=== PATIENT | male | born 1950 | race Two or more races ===

== ENCOUNTER 2019-10-22 17:31 | Inpatient (IN) | payer MEDICAID, OTHER ==
[~2019-10-22] VITALS: Ht 167.6 cm; Wt 69.5 kg
[2019-10-22 19:02] LABS: Basophils # (auto) 0 10 ^3/uL (0-0.2); Basophils % (auto) 0.3 % (0.0-2.0); Hemoglobin 18.4 g/dL (13.5-17.5); Lymphocytes # (auto) 1.7 10 ^3/uL (0.4-5.4)
[2019-10-22 19:04] LABS: Eosinophils # (auto) 0.1 10 ^3/uL (0-0.8); Hematocrit 51.2 % (41.0-53.0); Lymphocytes % (auto) 24.6 % (10.0-50.0); Mean Corpuscular Hemoglobin 35.7 pg (28.0-32.0); Mean Corpuscular Hgb Conc. 35.9 g/dL (32.0-36.0); Mean Corpuscular Volume 99.2 fL (80.0-100.0); Monocytes # (auto) 0.5 10 ^3/uL (0-1.3); Monocytes % (auto) 7.6 % (0.0-12.0); Neutrophils # (auto) 4.7 10 ^3/uL (1.6-8.6); Neutrophils % (auto) 65.5 % (37.0-80.0); Platelet Count (auto) 173 10^3/uL (140-450); Red Blood Cells 5.15 10^6/uL (4.5-5.90); Red Cell Distribution Width 12.9 % (11.8-14.3); White Blood Cell 7.1 10^3/uL (4.4-10.8)
[2019-10-22 19:28] LABS: Calcium 8.8 mg/dL (8.5-10.1); Chloride 102 mmol/L (98-107); Potassium 3.7 mmol/L (3.5-5.1); Sodium 136 mmol/L (136-145)
[2019-10-22 19:32] LABS: Alanine Aminotransferase 27 U/L (16-61); Anion Gap 3 (5-15); Aspartate Aminotransferase 21 U/L (15-37); BUN/Creatinine Ratio 12.9; Blood Urea Nitrogen 12 mg/dL (7-18); Carbon Dioxide 31 mmol/L (21-32); GFR African American 104 mL/min; GFR Non-African American 86 mL/min; Glucose 207 mg/dL (74-106)
[2019-10-22 19:37] LABS: Alkaline Phosphatase 144 U/L (45-117); Bilirubin, Total 1.2 mg/dL (0.2-1.0); Total Protein 8.5 g/dL (6.4-8.2)
[2019-10-22 19:40] LABS: Nucleated Red Blood Cells % 5.1 %
[2019-10-22] MEDS ORDERED: MORPHINE SULF INJ 2 MG/ML SYRINGE 1ML IV PRN (21:30)
[2019-10-22] MEDS ORDERED: DOCUSATE SOD 100 MG CAP PO PRN (21:30)
[2019-10-22] MEDS ORDERED: DEXTROSE (50%) 50ML SYRG IV PRN (21:30)
[2019-10-22] MEDS ORDERED: ACETAMINOPHEN 325 MG TAB PO PRN (21:30)
[2019-10-22] MEDS ORDERED: HYDROcodone-ACET 5/325MG TAB PO PRN (21:30)
[2019-10-22] MEDS ORDERED: ONDANSETRON HCL 4 MG/2 ML VIAL IV PRN (21:30)
[2019-10-22] MEDS: SODIUM CHLORIDE 0.9% 1,000 ML IV SCH (22:15)
[2019-10-22 23:26] VITALS: BP 163/90
[2019-10-22 23:30] VITALS: BP 163/90
[2019-10-22] MEDS ORDERED: hydrALAZINE HCL 25 MG TAB PO PRN (23:30)
[2019-10-23] MEDS: ACCU-CHEK COMFORT CURVE STRIP VI SCH ×7 (00:08→23:55)
[2019-10-23] MEDS: InsuLIN REG 1unit/0.01ml Soln (100units/ml) SC SCH ×7 (00:09→23:55)
[2019-10-23 05:00] VITALS: BP 159/85
[2019-10-23 05:48] LABS: Basophils # (auto) 0 10 ^3/uL (0-0.2); Basophils % (auto) 0.2 % (0.0-2.0); Hemoglobin 16.8 g/dL (13.5-17.5); Monocytes # (auto) 0.7 10 ^3/uL (0-1.3); Platelet Count (auto) 167 10^3/uL (140-450); Red Cell Distribution Width 12.5 % (11.8-14.3)
[2019-10-23 05:50] LABS: Eosinophils # (auto) 0.1 10 ^3/uL (0-0.8); Eosinophils % (auto) 1.6 % (0.0-7.0); Hematocrit 45.8 % (41.0-53.0); Lymphocytes # (auto) 1.9 10 ^3/uL (0.4-5.4); Lymphocytes % (auto) 21.6 % (10.0-50.0); Mean Corpuscular Hgb Conc. 36.5 g/dL (32.0-36.0); Mean Corpuscular Volume 98.5 fL (80.0-100.0); Monocytes % (auto) 8.2 % (0.0-12.0); Neutrophils % (auto) 68.4 % (37.0-80.0); Nucleated Red Blood Cells % 0.1 %; Red Blood Cells 4.66 10^6/uL (4.5-5.90); White Blood Cell 8.8 10^3/uL (4.4-10.8)
[2019-10-23 06:12] LABS: Calcium 8.4 mg/dL (8.5-10.1); Potassium 3.4 mmol/L (3.5-5.1)
[2019-10-23 06:18] LABS: BUN/Creatinine Ratio 14.5
[2019-10-23] MEDS: SODIUM CHLORIDE 0.9% 1,000 ML IV SCH ×2 (06:54→17:25)
[2019-10-23 08:00] VITALS: BP 150/84
[2019-10-23 12:00] VITALS: BP 147/81
[2019-10-23] MEDS ORDERED: POTASSIUM EFFERVESENT TAB 25 MEQ PO ONE (15:30)
[2019-10-23 16:55] VITALS: BP 157/89
[2019-10-23] MEDS ORDERED: LORazepam 2MG/ML-1ML VIAL IV PRN (17:45)
[2019-10-23] MEDS: ATORVASTATIN 20 MG TAB PO SCH (17:50)
[2019-10-23 22:00] VITALS: BP 148/80
[2019-10-23 23:13] LABS: Urine Bacteria NONE SEEN /hpf (None Seen); Urine Blood Negative /uL (Negative); Urine Specific Gravity 1.008 (1.001-1.035); Urine WBC 5 /hpf (0 - 3)
[2019-10-24] MEDS: SODIUM CHLORIDE 0.9% 1,000 ML IV SCH ×3 (03:25→23:34)
[2019-10-24] MEDS: ACCU-CHEK COMFORT CURVE STRIP VI SCH ×5 (03:43→21:46)
[2019-10-24] MEDS: InsuLIN REG 1unit/0.01ml Soln (100units/ml) SC SCH ×5 (03:43→20:00)
[2019-10-24 06:00] VITALS: BP 135/76
[2019-10-24 06:03] LABS: Basophils # (auto) 0 10 ^3/uL (0-0.2); Basophils % (auto) 0.3 % (0.0-2.0); Eosinophils # (auto) 0.1 10 ^3/uL (0-0.8); Hemoglobin 16.8 g/dL (13.5-17.5); Neutrophils # (auto) 6.8 10 ^3/uL (1.6-8.6)
[2019-10-24 06:05] LABS: Eosinophils % (auto) 1.5 % (0.0-7.0); Hematocrit 45.9 % (41.0-53.0); Lymphocytes % (auto) 20.4 % (10.0-50.0); Mean Corpuscular Hemoglobin 36.1 pg (28.0-32.0); Mean Corpuscular Hgb Conc. 36.6 g/dL (32.0-36.0); Mean Corpuscular Volume 98.8 fL (80.0-100.0); Monocytes # (auto) 0.8 10 ^3/uL (0-1.3); Monocytes % (auto) 8.2 % (0.0-12.0); Neutrophils % (auto) 69.6 % (37.0-80.0); Nucleated Red Blood Cells % 0.1 %; Platelet Count (auto) 168 10^3/uL (140-450); Red Blood Cells 4.65 10^6/uL (4.5-5.90); Red Cell Distribution Width 12.7 % (11.8-14.3); White Blood Cell 9.8 10^3/uL (4.4-10.8)
[2019-10-24 06:12] LABS: INR 1.07 (0.9-1.15)
[2019-10-24 06:36] LABS: Potassium 3.5 mmol/L (3.5-5.1)
[2019-10-24 06:52] LABS: BUN/Creatinine Ratio 14.8; Calcium 8.5 mg/dL (8.5-10.1)
[2019-10-24 09:00] VITALS: BP 138/88
[2019-10-24] MEDS ORDERED: SODIUM CHLORIDE 0.9% 1,000 ML IV SCH (11:45)
[2019-10-24] MEDS: ASPirin-EC 81 mg tab PO SCH (11:59)
[2019-10-24] MEDS ORDERED: IOHEXOL 350 MG/ML 100ML IJ ONE (12:09)
[2019-10-24 12:30] VITALS: BP 148/84
[2019-10-24] MEDS: ATORVASTATIN 20 MG TAB PO SCH (17:14)
[2019-10-24 17:41] VITALS: BP_SYST 144; BP_SYST 154; BP_DIAS 87; BP_DIAS 92
[2019-10-24 22:00] VITALS: BP 136/69
[2019-10-25] MEDS: ACCU-CHEK COMFORT CURVE STRIP VI SCH ×5 (00:24→16:00)
[2019-10-25] MEDS: InsuLIN REG 1unit/0.01ml Soln (100units/ml) SC SCH ×5 (04:00→16:00)
[2019-10-25 06:00] VITALS: BP 128/83
[2019-10-25 07:01] LABS: Basophils # (auto) 0 10 ^3/uL (0-0.2); Basophils % (auto) 0.4 % (0.0-2.0); Eosinophils # (auto) 0.1 10 ^3/uL (0-0.8); Nucleated Red Blood Cells % 0.2 %
[2019-10-25 07:03] LABS: Eosinophils % (auto) 1.1 % (0.0-7.0); Hematocrit 47.8 % (41.0-53.0); Hemoglobin 17.5 g/dL (13.5-17.5); Lymphocytes # (auto) 1.9 10 ^3/uL (0.4-5.4); Lymphocytes % (auto) 19.9 % (10.0-50.0); Mean Corpuscular Hemoglobin 35.9 pg (28.0-32.0); Mean Corpuscular Hgb Conc. 36.7 g/dL (32.0-36.0); Mean Corpuscular Volume 97.8 fL (80.0-100.0); Monocytes # (auto) 0.7 10 ^3/uL (0-1.3); Neutrophils # (auto) 6.9 10 ^3/uL (1.6-8.6); Neutrophils % (auto) 71.6 % (37.0-80.0); Platelet Count (auto) 176 10^3/uL (140-450); Red Blood Cells 4.88 10^6/uL (4.5-5.90); Red Cell Distribution Width 12.5 % (11.8-14.3); White Blood Cell 9.6 10^3/uL (4.4-10.8)
[2019-10-25 07:27] LABS: Potassium 4.1 mmol/L (3.5-5.1)
[2019-10-25 07:32] LABS: BUN/Creatinine Ratio 12.5; Calcium 8.8 mg/dL (8.5-10.1)
[2019-10-25] MEDS: SODIUM CHLORIDE 0.9% 1,000 ML IV SCH (08:37)
[2019-10-25 09:49] VITALS: BP 136/79
[2019-10-25] MEDS: ASPirin-EC 81 mg tab PO SCH (09:51)
[2019-10-25 14:44] VITALS: BP 129/73
[2019-10-25 15:57] VITALS: BP 129/73
== END 2019-10-25 17:15 | disposition home or self-care (01) | DRG 45 ==
LOC: ER 17:31 → TELE 17:32 → TELE-EAST 22:50
PROVIDERS: ADMIT Hospitalist; ATTEND Hospitalist
DX: I63.9 Cerebral infarction, unspecified (principal); E11.9 Type 2 diabetes mellitus without complications; E87.6 Hypokalemia; H53.8 Other visual disturbances; E78.5 Hyperlipidemia, unspecified; F17.210 Nicotine dependence, cigarettes, uncomplicated; F32.9 Major depressive disorder, single episode, unspecified; Z83.3 Family history of diabetes mellitus; Z79.899 Other long term (current) drug therapy; G47.30 Sleep apnea, unspecified; G83.21 Monoplegia of upper limb affecting right dominant side
CPT/HCPCS: 36415; 70450; 70496; 70498; 71045; 74176; 80048; 80053; 80061; 81001; 82962; 83036; 84443; 84484; 85025; 85610; 93005; 93306; 93886; G0378; J1815

== ENCOUNTER 2020-02-15 13:24 | Emergency (ER) | payer MEDICAID ==
[~2020-02-15] VITALS: Ht 162.6 cm; Wt 72.6 kg
[2020-02-15 14:28] VITALS: BP 169/81
[2020-02-15] MEDS ORDERED: KETOROLAC TROMETH 60MG/2ML VIAL IM ONE (15:15)
[2020-02-15] MEDS ORDERED: METHOCARBAMOL 500 MG TAB PO ONE (15:15)
== END 2020-02-15 16:09 | disposition home or self-care (01) ==
LOC: ER 13:24
DX: M54.6 Pain in thoracic spine (principal); F17.210 Nicotine dependence, cigarettes, uncomplicated
CPT/HCPCS: 72070; 72100; 81002; 96372; 99284; J1885